=== PATIENT | female | born 1980 | race Caucasian/White ===

== ENCOUNTER 2019-06-11 11:42 | Day surgery (SDC) | payer BC ==
[~2019-06-11 11:42] MED LIST changes: -DICLEGIS DR 101 EACH PO
== END 2019-06-11 15:48 | disposition home or self-care (01) ==
LOC: ATC 11:42
DX: O21.0 Mild hyperemesis gravidarum (principal); O99.341 Other mental disorders complicating pregnancy, first trimester; F32.9 Major depressive disorder, single episode, unspecified; F41.9 Anxiety disorder, unspecified; Z3A.08 8 weeks gestation of pregnancy; Z79.899 Other long term (current) drug therapy; Z88.0 Allergy status to penicillin
CPT/HCPCS: 96365; J3411; J3475; J7042

== ENCOUNTER → 2019-06-11 | Outpatient (CLI) | payer SELFPAY ==
[~2019-06-11] MED LIST: Bactrim Ds Tab1 EACH PO; CEPH500 PO; DICLEGIS DR 101 EACH PO; Norco 5-325 Ta1 EACH PO; ONDA8ODT MM; Zofran Odt4 MG SL
== END | disposition home or self-care (01) ==
LOC: LAB SHORT 12:41 → LAB 12:41
DX: R30.0 Dysuria (principal)
CPT/HCPCS: 87086

== ENCOUNTER 2019-06-15 10:08 | Day surgery (SDC) | payer OTHER ==
--- NOTE | 2019-06-15 11:59 | NUR ---
PT TOOK PO ZOFRAN 20 MIN PRIOR TO APPOINTMENT. IV ZOFRAN HELD TODAY. INFORMED PT IF SHE WOULD LIKE TO HOLD THE PO ZOFRAN BEFORE HER APPOINTMENTS HERE WE CAN GIVE HER THE IV ZOFRAN. HER CHOICE. PT VERBALIZED UNDERSTANDING
== END 2019-06-15 11:50 | disposition home or self-care (01) ==
LOC: ATC 10:08
DX: O21.0 Mild hyperemesis gravidarum (principal); Z3A.08 8 weeks gestation of pregnancy; Z88.0 Allergy status to penicillin
CPT/HCPCS: 96365; J2405; J3411; J3475; J7042

== ENCOUNTER 2019-06-29 10:01 | Day surgery (SDC) | payer OTHER ==
[2019-06-29] MEDS ORDERED: DICLEGIS DR 101 EACH PO (10:37)
== END 2019-06-29 11:30 | disposition home or self-care (01) ==
LOC: ATC 10:01
DX: O21.0 Mild hyperemesis gravidarum (principal); Z3A.11 11 weeks gestation of pregnancy; Z88.0 Allergy status to penicillin; Z79.899 Other long term (current) drug therapy
CPT/HCPCS: 96365; 96375; J2405; J3411; J3475; J7042

== ENCOUNTER → 2019-07-08 | Outpatient (CLI) | payer BC ==
[~2019-07-08] MED LIST changes: +DICLEGIS DR 101 EACH PO
[2019-07-11 04:07] LABS: CHLAMYDIA TRACHOMATIS, NAA Negative (Negative); NEISSERIA GONORRHOEAE, NAA Negative (Negative)
== END | disposition home or self-care (01) ==
LOC: LAB SHORT 11:45 → LAB 11:45
PROVIDERS: Obstetrics & Gynecology
DX: Z34.81 Encounter for supervision of other normal pregnancy, first trimester (principal)
CPT/HCPCS: 87491; 87591

== ENCOUNTER → 2019-10-01 | Outpatient (CLI) | payer BC | END | disposition home or self-care (01) | LOC: LAB 11:03 → LAB SHORT 11:03 | DX: R30.0 Dysuria (principal) | CPT/HCPCS: 87086; 87147 ==

== ENCOUNTER 2019-10-19 22:28 | Emergency (ER) | payer BC ==
[~2019-10-19] VITALS: Ht 162.6 cm; Wt 88.5 kg
[2019-10-19] MEDS ORDERED: ALBU90OI (22:41)
[2019-10-19] MEDS ORDERED: ESCI10 PO (22:41)
[2019-10-19] MEDS ORDERED: ALBU2.5V5 (22:41)
== END 2019-10-20 01:55 | disposition home or self-care (01) ==
LOC: ER 22:28
DX: O99.89 Other specified diseases and conditions complicating pregnancy, childbirth and the puerperium (principal); R05 Cough; R07.89 Other chest pain; O99.513 Diseases of the respiratory system complicating pregnancy, third trimester; J45.909 Unspecified asthma, uncomplicated; O99.613 Diseases of the digestive system complicating pregnancy, third trimester; K21.9 Gastro-esophageal reflux disease without esophagitis; O09.523 Supervision of elderly multigravida, third trimester; Z88.0 Allergy status to penicillin; Z79.899 Other long term (current) drug therapy; Z79.51 Long term (current) use of inhaled steroids; Z3A.28 28 weeks gestation of pregnancy
CPT/HCPCS: 71045; 99283-25

== ENCOUNTER → 2019-12-31 | Outpatient (CLI) | payer BC ==
[~2019-12-31] MED LIST changes: +ALBU2.5V5; +ALBU90OI; +ESCI10 PO
== END | disposition home or self-care (01) ==
LOC: LAB 14:05 → LAB SHORT 14:05
DX: R30.0 Dysuria (principal)
CPT/HCPCS: 87086; 87147

== ENCOUNTER → 2021-03-04 | Outpatient (CLI) | payer BC ==
[~2021-03-04] MED LIST changes: +IBUP200 PO; +MONT10T; +OMEP20ER PO
[2021-03-04 13:35] LABS: Free Thyroxine 1.12 ng/dL (0.70-1.60); Thyroid Stimulating Hormone 0.555 uIU/mL (0.360-4.800); Thyroxine (T4) 10.7 ug/dL (4.8-13.9)
== END | disposition home or self-care (01) ==
LOC: LAB SHORT 09:18 → LAB 09:18
PROVIDERS: Legal Medicine
DX: N93.8 Other specified abnormal uterine and vaginal bleeding (principal)
CPT/HCPCS: 36415; 84436; 84439; 84443

== ENCOUNTER → 2021-03-31 | Outpatient (CLI) | payer BC ==
[2021-04-02 16:07] LABS: HPV 16 Negative (Negative); HPV 18 Negative (Negative); HPV OTHER HR TYPES Negative (Negative)
== END | disposition home or self-care (01) ==
LOC: LAB 15:34 → LAB SHORT 15:34
PROVIDERS: Obstetrics & Gynecology
DX: Z12.4 Encounter for screening for malignant neoplasm of cervix (principal)
CPT/HCPCS: 87624; G0123